=== PATIENT | female | born 1965 | race African-American/Black ===

== ENCOUNTER 2021-08-05 21:57 | Observation (INO) ==
[2021-08-05 22:39] LABS: Basophils # 0.1 K/mcL (0.0-0.2); Basophils % 0.5 %; Eosinophils # 0.2 K/mcL (0.0-0.6); Eosinophils % 1.6 %; Hematocrit 35.5 % (35.3-44.9); Hemoglobin 10.4 g/dL (11.5-15.4); Immature Granulocytes % 0.4 % (0-4); Lymphocytes # 1.8 K/mcL (0.6-4.6); Lymphocytes % 14.3 %; Mean Corpuscular HGB Conc 29.3 g/dL (31.6-35.5); Mean Corpuscular Hemoglobin 23.4 pg (28.0-33.3); Mean Corpuscular Volume 79.8 fL (83.0-100.0); Mean Platelet Volume 8.8 fL (9.4-12.4); Monocytes # 0.8 K/mcL (0.0-1.3); Monocytes % 6.6 %; Neutrophils # 9.5 K/mcL (1.6-8.9); Platelet Count 612 K/mcL (140-400); Red Blood Count 4.45 M/mcL (3.82-4.97); Red Cell Distribution Width 17.9 % (11.5-14.5); Segmented Neutrophils % 76.6 %; White Blood Count 12.4 K/mcL (4.3-11.1)
[2021-08-05 23:01] LABS: BUN/Creatinine Ratio 11 (6-26); Blood Urea Nitrogen 11 mg/dL (6-20); Calcium 9.1 mg/dL (8.6-10.3); Carbon Dioxide 29 mEq/L (23-29); Chloride 102 mEq/L (98-107); Glucose 119 mg/dL (70-105); Osmolality,Calculated 287 (280-300); Potassium 3.6 mEq/L (3.5-5.1); Sodium 138 mEq/L (136-145); Troponin I < 0.03 ng/mL (< 0.04); eGFR For African Americans > 60 (> 60); eGFR For Non-African Americans 60 (> 60)
[2021-08-06] MEDS: Nitroglycerin 0.4 MG TAB.SUBL SL SCH ×3 (00:32→04:10)
[2021-08-06] MEDS ORDERED: Aspirin 325 MG TABLET PO ONE (00:56)
[2021-08-06] MEDS ORDERED: Morphine Sulfate 2 MG/ML SYRINGE IVP PRN (02:49)
[2021-08-06] MEDS ORDERED: Dextrose Gel 15 GM/37.5 ML TUBE PO PRN ×2 (02:50)
[2021-08-06] MEDS ORDERED: D5% in Water 1,000 ML IVC PRN (02:50)
[2021-08-06] MEDS ORDERED: *HR* Dextrose 50 % in Water (Syg) 50 ML SYRINGE IVP PRN (02:50)
[2021-08-06] MEDS ORDERED: Perflutren Lipid Microsphere 1.3 ML in 0.9 % Sodium Chloride 8.7 ML IVP PRN (02:51)
[2021-08-06 02:55] LABS: Influenza A PCR Negative (Negative); Influenza B PCR Negative (Negative); Resp. Syncytial Virus PCR Negative (Negative)
[2021-08-06 02:58] LABS: SARS-CoV-2 by PCR (In House) Negative (Negative)
[2021-08-06] MEDS ORDERED: Ondansetron 4 MG/2 ML VIAL IVP PRN (03:01)
[2021-08-06] MEDS ORDERED: Naloxone 0.4 MG/ML INJ IVP PRN (03:01)
[2021-08-06] MEDS ORDERED: Acetaminophen 325 MG TABLET PO PRN (03:01)
[2021-08-06 03:06] LABS: Amorphous Sediment,Urine Few per hpf (None-Few); Bacteria,Urine Few per hpf (None-Few); Bilirubin,Urine Negative (Negative); Blood,Urine Negative (Negative); Clarity,Urine Turbid (Clear); Color,Urine Yellow (Yellow); Glucose,Urine (UA) Normal (Normal); Ketones,Urine Negative (Negative); Leukocyte Esterase,Urine Negative (Negative); Mucus,Urine Few per lpf (None-Few); Nitrite,Urine Negative (Negative); PH,Urine 6.5 pH Units (5.0-8.0); Protein,Urine Trace mg/dL (Neg-Trace); Specific Gravity,Urine 1.024 (1.010-1.025); Squamous Epithelial Cell,Urine Few per hpf (None-Few); Urobilinogen,Urine Normal (Normal); WBC,Urine 15-30 per hpf (0-3)
[2021-08-06 03:13] LABS: Amphetamine Screen,Urine Negative ng/mL (Cutoff=1000); Barbiturate Screen,Urine Negative ng/mL (Cutoff=200); Benzodiazepines Screen,Urine Positive ng/mL (Cutoff=200); Cannabinoid Screen,Urine Negative ng/mL (Cutoff = 50); Cocaine Screen,Urine Negative ng/mL (Cutoff= 300); Opiate Screen,Urine Positive ng/mL (Cutoff=300); Phencyclidine Screen,Urine Negative ng/mL (Cutoff=25)
[2021-08-06] MEDS: *HR* Heparin 5,000 UNIT/ML VIAL SQ SCH ×3 (05:54→21:58)
[2021-08-06] MEDS: Insulin LISPRO 300 UNITS/3 ML VIAL SUBQ SCH ×3 (06:09→17:37)
[2021-08-06 06:13] LABS: Hemoglobin 9.4 g/dL (11.5-15.4); Mean Corpuscular HGB Conc 29.4 g/dL (31.6-35.5); Mean Corpuscular Hemoglobin 23.3 pg (28.0-33.3); Mean Corpuscular Volume 79.4 fL (83.0-100.0); Mean Platelet Volume 8.7 fL (9.4-12.4); Platelet Count 548 K/mcL (140-400); Red Blood Count 4.03 M/mcL (3.82-4.97); Red Cell Distribution Width 17.6 % (11.5-14.5); White Blood Count 9.7 K/mcL (4.3-11.1)
[2021-08-06 06:24] LABS: INR 1.1; Prothrombin Time 12.1 Seconds (9.4-12.1)
[2021-08-06 06:27] LABS: Activated Partial Thrombo Time 30.7 Seconds (26.0-36.0)
[2021-08-06 06:32] LABS: % Iron Saturation 4 % (15-50); BUN/Creatinine Ratio 12 (6-26); Blood Urea Nitrogen 11 mg/dL (6-20); Calcium 9.1 mg/dL (8.6-10.3); Carbon Dioxide 27 mEq/L (23-29); Chloride 104 mEq/L (98-107); Chol/HDL Ratio 3.6 (0-4.9); Cholesterol 143 mg/dL (< 200); Glucose 104 mg/dL (70-105); HDL Cholesterol 40 mg/dL (40-59); Iron 15 mcg/dL (50-170); LDL Cholesterol,Calculated 86 mg/dL (< 100); Osmolality,Calculated 286 (280-300); Potassium 3.8 mEq/L (3.5-5.1); Sodium 138 mEq/L (136-145); Transferrin 257 mg/dL (203-362); Triglycerides 84 mg/dL (< 150); eGFR For African Americans > 60 (> 60); eGFR For Non-African Americans > 60 (> 60)
[2021-08-06 06:33] LABS: Troponin I < 0.03 ng/mL (< 0.04)
[2021-08-06 06:46] LABS: Thyroid Stimulating Hormone 0.993 mcIU/mL (0.340-5.600)
[2021-08-06 06:52] LABS: Ferritin 9 ng/mL (10-120)
[2021-08-06] MEDS ORDERED: Regadenoson 0.4 MG/5 ML SYRINGE IVP ONE (06:53)
[2021-08-06 06:56] LABS: Folate 6.5 ng/mL (3.0-16.0)
[2021-08-06] MEDS ORDERED: diazePAM 10 MG TABLET PO SCH (09:00)
[2021-08-06] MEDS ORDERED: Isovue-370 500 ML BOTTLE IVP ONE (09:57)
[2021-08-06 10:52] LABS: Estimated Average Glucose 148 mg/dl; Hemoglobin A1C 6.8 %
[2021-08-06] MEDS: Gabapentin 300 MG CAPSULE PO SCH ×3 (11:57→21:57)
[2021-08-06] MEDS: Aspirin Enteric Coated 81 MG Tablet PO SCH (11:58)
[2021-08-06] MEDS: ARIPiprazole 10 MG TABLET PO SCH (11:58)
[2021-08-06] MEDS: BuPROPion SR (12 HR) 150 MG TABLET PO SCH ×2 (11:59→21:58)
[2021-08-06] MEDS ORDERED: Nitroglycerin 0.4 MG TAB.SUBL SL PRN (12:14)
[2021-08-06] MEDS ORDERED: Nitroglycerin 0.4 MG TAB.SUBL SL ONE (12:17)
[2021-08-06] MEDS: *HR* HYDROcodone/Acet 5/325 mg TABLET PO PRN ×2 (15:15→21:57)
[2021-08-06] MEDS: diazePAM 5 MG TABLET PO SCH (21:57)
[2021-08-07] MEDS: Insulin LISPRO 300 UNITS/3 ML VIAL SUBQ SCH ×2 (01:58→06:01)
[2021-08-07] MEDS: *HR* Heparin 5,000 UNIT/ML VIAL SQ SCH (06:01)
[2021-08-07 08:01] VITALS: BP 119/80; PULSE 66; TEMP 98.3; O2SAT 98
[2021-08-07 08:47] LABS: Hematocrit 32.3 % (35.3-44.9); Hemoglobin 9.5 g/dL (11.5-15.4); Mean Corpuscular HGB Conc 29.4 g/dL (31.6-35.5); Mean Corpuscular Hemoglobin 23.6 pg (28.0-33.3); Mean Corpuscular Volume 80.3 fL (83.0-100.0); Mean Platelet Volume 8.9 fL (9.4-12.4); Platelet Count 578 K/mcL (140-400); Red Blood Count 4.02 M/mcL (3.82-4.97); Red Cell Distribution Width 17.8 % (11.5-14.5); White Blood Count 7.6 K/mcL (4.3-11.1)
[2021-08-07 09:03] LABS: BUN/Creatinine Ratio 10 (6-26); Blood Urea Nitrogen 11 mg/dL (6-20); Calcium 8.8 mg/dL (8.6-10.3); Carbon Dioxide 27 mEq/L (23-29); Chloride 105 mEq/L (98-107); Glucose 96 mg/dL (70-105); Osmolality,Calculated 287 (280-300); Sodium 139 mEq/L (136-145); eGFR For African Americans > 60 (> 60); eGFR For Non-African Americans 54 (> 60)
[2021-08-07] MEDS: Aspirin Enteric Coated 81 MG Tablet PO SCH (09:29)
[2021-08-07] MEDS: BuPROPion SR (12 HR) 150 MG TABLET PO SCH (09:29)
[2021-08-07] MEDS: diazePAM 5 MG TABLET PO SCH (09:29)
[2021-08-07] MEDS: Gabapentin 300 MG CAPSULE PO SCH (09:29)
[2021-08-07] MEDS: ARIPiprazole 10 MG TABLET PO SCH (09:29)
== END 2021-08-07 12:02 | disposition home or self-care (01) ==
LOC: 3BNU 21:57 → EMEROOARM 21:57 → 3BNU 08-06 04:00
PROVIDERS: ADMIT Internal Medicine; ATTEND Internal Medicine

== ENCOUNTER 2022-03-06 06:04 | Observation (INO) ==
[2022-03-06] MEDS ORDERED: CeFAZolin Syr 2,000MG/20 ML 2,000 MG/20 ML SYRINGE IVPB ONE (06:16)
[2022-03-06] MEDS ORDERED: *HR* HYDROmorphone PF 0.5 MG/0.5 ML SYRINGE IVP PRN (06:25)
[2022-03-06] MEDS ORDERED: Ondansetron 4 MG/2 ML VIAL IVP PRN ×2 (06:25→14:37)
[2022-03-06] MEDS ORDERED: Albuterol 2.5 MG/3 ML NEBULIZER IH ONE (06:25)
[2022-03-06] MEDS ORDERED: Ringers Solution, Lactated 1,000 ML IVC SCH (06:30)
[2022-03-06] MEDS ORDERED: *HR* FentaNYL (PF) 100 MCG/2 ML VIAL ONE (06:52)
[2022-03-06] MEDS ORDERED: *HR* Midazolam HCl 2 MG/2 ML VIAL ONE (06:52)
[2022-03-06] MEDS ORDERED: *HR* Rocuronium Bromide 50 MG/5 ML VIAL ONE (06:52)
[2022-03-06] MEDS ORDERED: *HR* Propofol 200 MG/20 ML VIAL IVP ONE ×2 (06:52→08:14)
[2022-03-06] MEDS ORDERED: Lidocaine -MPF 2% 5 ML VIAL ONE (06:52)
[2022-03-06] MEDS ORDERED: *HR* Succinylcholine 200 MG/10 ML VIAL IVP ONE (06:52)
[2022-03-06] MEDS ORDERED: Ondansetron 4 MG/2 ML VIAL ONE (06:52)
[2022-03-06] MEDS ORDERED: *HR* Phenylephrine 10 MG/ML VIAL ONE ×2 (06:53→10:58)
[2022-03-06] MEDS ORDERED: EPHEDrine 50 MG/ML VIAL ONE (06:53)
[2022-03-06] MEDS ORDERED: *HR* Remifentanil 2 MG VIAL IVP ONE (06:53)
[2022-03-06] MEDS ORDERED: *HR* OxyCODONE Immed Rel 5 MG TABLET PO PRN (07:00)
[2022-03-06] MEDS ORDERED: Famotidine 20 MG TABLET PO ONE (07:00)
[2022-03-06] MEDS ORDERED: Gabapentin 300 MG CAPSULE PO ONE (07:00)
[2022-03-06] MEDS ORDERED: tiZANidine 4 MG TABLET PO PRN (07:00)
[2022-03-06] MEDS ORDERED: Vancomycin 1,000 MG VIAL ONE (07:15)
[2022-03-06] MEDS ORDERED: *HR* Remifentanil 1 MG VIAL IVP ONE ×2 (10:19→11:20)
[2022-03-06] MEDS ORDERED: *HR* HYDROMORPHONE 2 MG/ML VIAL ONE (11:52)
[2022-03-06] MEDS: *HR* FentaNYL (PF) 100 MCG/2 ML VIAL IVP PRN ×2 (13:38→13:45)
[2022-03-06] MEDS ORDERED: polyethylene glycoL 3350 17 GM POWD.PACK PO PRN (14:37)
[2022-03-06] MEDS ORDERED: Naloxone 0.4 MG/ML INJ IVP PRN (14:37)
[2022-03-06] MEDS: *HR* HYDROcodone/Acet 5/325 mg TABLET PO PRN (16:24)
[2022-03-06] MEDS: CeFAZolin 2 GM/120 ML BAG IVPB SCH (16:26)
[2022-03-06] MEDS: *HR* Metformin 500 MG TABLET PO SCH (19:12)
[2022-03-06] MEDS: *HR* OxyCODONE Immed Rel 5 MG TABLET PO PRN (20:03)
[2022-03-06] MEDS: BuPROPion SR (12 HR) 150 MG TABLET PO SCH (20:03)
[2022-03-07] MEDS: CeFAZolin 2 GM/120 ML BAG IVPB SCH (00:18)
[2022-03-07] MEDS: Ringers Solution, Lactated 1,000 ML IVC SCH ×2 (00:18→12:26)
[2022-03-07] MEDS: *HR* OxyCODONE Immed Rel 5 MG TABLET PO PRN ×3 (03:23→20:54)
[2022-03-07] MEDS: *HR* Rivaroxaban 10 MG TABLET PO SCH (08:39)
[2022-03-07] MEDS: ARIPiprazole 10 MG TABLET PO SCH (08:40)
[2022-03-07] MEDS: Loratadine 10 MG TABLET PO SCH (08:40)
[2022-03-07] MEDS: Cholecalciferol (D-3) 1,000 UNIT (25MCG) TABLET PO SCH (08:40)
[2022-03-07] MEDS: BuPROPion SR (12 HR) 150 MG TABLET PO SCH ×2 (08:41→20:54)
[2022-03-07] MEDS: VITAMIN E 100 UNITS PO SCH (08:41)
[2022-03-07] MEDS: Acetaminophen 325 MG TABLET PO PRN (11:22)
[2022-03-07] MEDS: *HR* HYDROcodone/Acet 5/325 mg TABLET PO PRN (14:55)
[2022-03-07] MEDS: *HR* Metformin 500 MG TABLET PO SCH (17:29)
[2022-03-08] MEDS: *HR* Rivaroxaban 10 MG TABLET PO SCH (09:12)
[2022-03-08] MEDS: ARIPiprazole 10 MG TABLET PO SCH (09:12)
[2022-03-08] MEDS: *HR* OxyCODONE Immed Rel 5 MG TABLET PO PRN ×2 (09:12→20:55)
[2022-03-08] MEDS: Cholecalciferol (D-3) 1,000 UNIT (25MCG) TABLET PO SCH (09:12)
[2022-03-08] MEDS: Acetaminophen 325 MG TABLET PO PRN ×2 (09:12→18:55)
[2022-03-08] MEDS: BuPROPion SR (12 HR) 150 MG TABLET PO SCH ×2 (09:13→20:54)
[2022-03-08] MEDS: Loratadine 10 MG TABLET PO SCH (09:13)
[2022-03-08] MEDS: VITAMIN E 100 UNITS PO SCH (09:13)
[2022-03-08] MEDS: *HR* Metformin 500 MG TABLET PO SCH (18:53)
[2022-03-09] MEDS: *HR* OxyCODONE Immed Rel 5 MG TABLET PO PRN ×4 (06:03→21:24)
[2022-03-09] MEDS: BuPROPion SR (12 HR) 150 MG TABLET PO SCH ×2 (08:02→21:24)
[2022-03-09] MEDS: ARIPiprazole 10 MG TABLET PO SCH (08:03)
[2022-03-09] MEDS: *HR* Rivaroxaban 10 MG TABLET PO SCH (08:03)
[2022-03-09] MEDS: Cholecalciferol (D-3) 1,000 UNIT (25MCG) TABLET PO SCH (08:03)
[2022-03-09] MEDS: Loratadine 10 MG TABLET PO SCH (08:03)
[2022-03-09] MEDS: VITAMIN E 100 UNITS PO SCH (08:09)
[2022-03-09] MEDS: *HR* Metformin 500 MG TABLET PO SCH (17:48)
[2022-03-10] MEDS: *HR* HYDROcodone/Acet 5/325 mg TABLET PO PRN (03:54)
[2022-03-10] MEDS: Cholecalciferol (D-3) 1,000 UNIT (25MCG) TABLET PO SCH (08:42)
[2022-03-10] MEDS: *HR* Rivaroxaban 10 MG TABLET PO SCH (08:43)
[2022-03-10] MEDS: Loratadine 10 MG TABLET PO SCH (08:43)
[2022-03-10] MEDS: VITAMIN E 100 UNITS PO SCH (08:46)
[2022-03-10] MEDS: BuPROPion SR (12 HR) 150 MG TABLET PO SCH ×2 (08:57→21:24)
[2022-03-10] MEDS: ARIPiprazole 10 MG TABLET PO SCH (08:57)
[2022-03-10] MEDS: *HR* OxyCODONE Immed Rel 5 MG TABLET PO PRN ×2 (08:58→16:42)
[2022-03-10] MEDS: *HR* Metformin 500 MG TABLET PO SCH (17:49)
[2022-03-11] MEDS: Acetaminophen 325 MG TABLET PO PRN ×2 (01:48→13:44)
[2022-03-11] MEDS: *HR* OxyCODONE Immed Rel 5 MG TABLET PO PRN ×3 (05:01→21:04)
[2022-03-11] MEDS: Loratadine 10 MG TABLET PO SCH (08:38)
[2022-03-11] MEDS: Cholecalciferol (D-3) 1,000 UNIT (25MCG) TABLET PO SCH (08:38)
[2022-03-11] MEDS: *HR* HYDROcodone/Acet 5/325 mg TABLET PO PRN ×2 (08:39→19:42)
[2022-03-11] MEDS: *HR* Rivaroxaban 10 MG TABLET PO SCH (08:40)
[2022-03-11] MEDS: ARIPiprazole 10 MG TABLET PO SCH (08:50)
[2022-03-11] MEDS: BuPROPion SR (12 HR) 150 MG TABLET PO SCH ×2 (08:50→19:42)
[2022-03-11] MEDS: Vitamin E 200 UNIT (90MG) CAPSULE PO SCH (08:50)
[2022-03-11] MEDS: *HR* Metformin 500 MG TABLET PO SCH (16:09)
[2022-03-12] MEDS: *HR* OxyCODONE Immed Rel 5 MG TABLET PO PRN ×3 (01:58→12:16)
[2022-03-12] MEDS: BuPROPion SR (12 HR) 150 MG TABLET PO SCH (09:00)
[2022-03-12] MEDS: Cholecalciferol (D-3) 1,000 UNIT (25MCG) TABLET PO SCH (09:01)
[2022-03-12] MEDS: Vitamin E 200 UNIT (90MG) CAPSULE PO SCH (09:01)
[2022-03-12] MEDS: *HR* Rivaroxaban 10 MG TABLET PO SCH (09:01)
[2022-03-12] MEDS: *HR* HYDROcodone/Acet 5/325 mg TABLET PO PRN ×2 (09:01→14:02)
[2022-03-12] MEDS: Loratadine 10 MG TABLET PO SCH (09:02)
[2022-03-12] MEDS: ARIPiprazole 10 MG TABLET PO SCH (09:02)
[2022-03-12 10:39] VITALS: BP 132/89; PULSE 81; TEMP 97.9; O2SAT 93
[2022-03-13] MEDS ORDERED: Dulaglutide [Trulicity] 1.5 MG/0.5 ML SUBQ SCH (09:00)
== END 2022-03-12 15:00 | disposition home health service (06) ==
LOC: 4WAOSI 06:04 → SDCAOSI 06:04 → 4WAOSI 14:10
PROVIDERS: ADMIT Orthopaedic Surgery Orthopaedic Surgery of the Spine; ATTEND Orthopaedic Surgery Orthopaedic Surgery of the Spine